=== PATIENT | male | born 1975 | race Caucasian/White ===

== ENCOUNTER 2021-06-20 14:33 | Emergency (ER) | payer SELFPAY ==
[~2021-06-20] VITALS: Ht 180.3 cm; Wt 82.0 kg
[2021-06-20 16:40] VITALS: BP 151/76
[2021-06-20] MEDS ORDERED: SYNTHROID300 MCG PO (16:58)
== END 2021-06-20 17:10 | disposition home or self-care (01) | DRG 645 ==
LOC: ED 14:33
DX: E03.9 Hypothyroidism, unspecified (principal); T38.1X6A Underdosing of thyroid hormones and substitutes, initial encounter; Z91.128 Patient's intentional underdosing of medication regimen for other reason